=== PATIENT | male | born 1995 | race Hispanic/Latino ===

== ENCOUNTER 2017-09-11 20:01 | Emergency (ER) | payer BC, OTHER ==
[2017-09-11 20:12] VITALS: BP 144/91; PULSE 78; RESP 16; TEMP 98.2; O2SAT 100
--- NOTE | 2017-09-11 20:27 | ED PDOC ---
Upper Extremity Pain/Injury Time Seen by Provider: 09/11/17 20:13 Chief Complaint (Nursing): Upper Extremity Problem/Injury Chief Complaint (Provider): Right Shoulder Pain History Per: Patient History/Exam Limitations: no limitations Onset/Duration Of Symptoms: Days Quality: "Pain" Severity: None Exacerbating Factor(s): Nothing Additional Complaint(s): 22 year old left hand dominant male presents to the emergency department complaining of right shoulder and collar bone pain s/p fall off skateboard 3 days ago. He denies head injury or LOC. No medical attention sought at time of injury but patient presents today with persistent pain to shoulder region especially with certain movement. He has been taking advil which has helped the pain. PMD: none Past Medical History Reviewed: Historical Data, Nursing Documentation, Vital Signs Vital Signs: Last Vital Signs Temp 98.2 F 09/11/17 20:10 Pulse 78 09/11/17 20:10 Resp 16 09/11/17 20:10 BP 144/91 H 09/11/17 20:10 Pulse Ox 100 09/11/17 20:10 - Medical History PMH: No Chronic Diseases - Surgical History Surgical History: Appendectomy (approx 2013) - Family History Family History: States: No Known Family Hx - Living Arrangements Living Arrangements: With Family - Social History Current smoker - smoking cessation education provided: No Ex-Smoker (has not smoked in the last 12 months): No Alcohol: Social Drugs: Denies - Allergies Allergies/Adverse Reactions: Allergies Allergy/AdvReac Type Severity Reaction Status Date / Time No Known Allergies Allergy Verified 09/11/17 20:09 Review of Systems ROS Statement: Except As Marked, All Systems Reviewed And Found Negative Musculoskeletal: Positive for: Other (right shoulder injury) Physical Exam - Reviewed Nursing Documentation Reviewed: Yes Vital Signs Reviewed: Yes - Physical Exam Appears: Positive for: Well, Non-toxic, No Acute Distress Head Exam: Positive for: ATRAUMATIC, NORMAL INSPECTION Skin: Positive for: Normal Color, Warm, Dry. Negative for: Rash Eye Exam: Positive for: Normal appearance Neck: Positive for: Normal, Painless ROM Cardiovascular/Chest: Positive for: Regular Rate, Rhythm, Chest Non Tender. Negative for: Tachycardia Respiratory: Positive for: Normal Breath Sounds. Negative for: Rales, Rhonchi, Wheezing, Respiratory Distress Extremity: Positive for: Tenderness (tenderness to right clavicle and anterior shoulder), Other (strong right hand regional engineer). Negative for: Deformity Neurologic/Psych: Positive for: Alert, Oriented, Gait. Negative for: Motor/ Sensory Deficits - ECG O2 Sat by Pulse Oximetry: 100 (RA) Pulse Ox Interpretation: Normal - Other Rad Right shoulder x-ray X-Ray: Interpreted by Me, Viewed By Me X-Ray Interpretation: no fx, no dis Medical Decision Making Medical Decision Makin Initial Impression 22 year old male presenting with right shoulder pain Initial Plan: * X-ray right shoulder * Pain meds declined Patient aware of x-ray results. He declined sling. Patient was referred to ortho transportation job titles and advised to follow up for any persistent symptoms. Documented by Ayesha Shaikh acting as a scribe for Hannah Castaneda PA-C. All medical record entries made by the Scribe were at my direction and personally dictated by me. I have reviewed the chart and agree that the record accurately reflects my personal performance of the history, physical exam, medical decision making, and the department course for this patient. I have also personally directed, reviewed, and agree with the discharge instructions and disposition. Disposition - Clinical Impression Clinical Impression: Shoulder sprain - Patient ED Disposition Is Patient to be Admitted: No Counseled Patient/Family Regarding: Diagnosis, Need For Followup - Disposition Referrals: Dion Amaya III, MD [Staff Provider] - Disposition: Routine/Home Disposition Time: 20:55 Condition: STABLE Additional Instructions: Ice and rest affected area. Advil for pain as needed. Follow up with primary care doctor orthopedist for any persistent symptoms. Instructions: Shoulder Sprain Forms: [employer] (Croatian) - POA Present On Arrival: None
--- NOTE | 2017-09-12 09:11 | RAD ---
PROCEDURE: Radiographs of the Right Shoulder HISTORY: trauma COMPARISON: No prior. FINDINGS: BONES: No acute fracture or destructive bony lesion identified. JOINTS: Normal. Glenohumeral and acromioclavicular joints preserved. No osteoarthritis. SOFT TISSUES: Normal. OTHER FINDINGS: None. IMPRESSION: Normal radiographs of the right shoulder.
== END 2017-09-11 20:58 | disposition home or self-care (01) ==
LOC: H.ER 20:01
DX: S43.401A Unspecified sprain of right shoulder joint, initial encounter (principal); W19.XXXA Unspecified fall, initial encounter; Y92.89 Other specified places as the place of occurrence of the external cause